=== PATIENT | female | born 1955 | race Caucasian/White ===

== ENCOUNTER 2017-04-22 04:04 | Emergency (ER) | payer MEDICARE, MEDICAID ==
[~2017-04-22] VITALS: Ht 170.2 cm; Wt 57.5 kg
[2017-04-22] MEDS ORDERED: naproxen 500mg tablet PO ONE (04:40)
[2017-04-22] MEDS ORDERED: NAPR-56 PO (04:46)
[2017-04-22 05:04] VITALS: BP 118/79
== END 2017-04-22 05:16 | disposition home or self-care (01) ==
LOC: ER 04:05
DX: M25.531 Pain in right wrist (principal); I10 Essential (primary) hypertension; M19.90 Unspecified osteoarthritis, unspecified site; G89.29 Other chronic pain; F17.200 Nicotine dependence, unspecified, uncomplicated; Z98.890 Other specified postprocedural states
CPT/HCPCS: 73110; 99284